=== PATIENT | male | born 1945 | race Caucasian/White ===

== ENCOUNTER 2020-02-12 16:36 | Emergency (ER) | payer BC, MEDICARE ==
[~2020-02-12] VITALS: Ht 167.6 cm; Wt 66.3 kg
[2020-02-12 17:22] LABS: BASOPHILS # (AUTO) 0.09 x10^3/uL (0-0.1); BASOPHILS % (AUTO) 1 % (0-1); EOSINOPHILS # (AUTO) 0.35 x10^3/uL (0-0.4); EOSINOPHILS % (AUTO) 4 % (1-7); LYMPHOCYTES # (AUTO) 2.15 x10^3/uL (1-3.4); LYMPHOCYTES % (AUTO) 24 % (22-44); MD NO; MEAN CORPUSCULAR HEMOGLOBIN 31.5 pg (27.5-34.5); MEAN CORPUSCULAR VOLUME 98.4 fL (81-97); MEAN PLATELET VOLUME 8.8 fL (7.4-10.4); MONOCYTES # (AUTO) 0.76 x10^3/uL (0.2-0.8); MONOCYTES % (AUTO) 8 % (2-9); NEUTROPHILS # (AUTO) 5.75 x10^3/uL (1.8-6.8); NEUTROPHILS % (AUTO) 63 % (42-75); PLATELET COUNT 194 x10^3/uL (130-400); RED BLOOD COUNT 4.62 x10^6/uL (4.38-5.82)
[2020-02-12 17:28] LABS: ANION GAP 5 mmol/L (5-15); CALCIUM 8.5 mg/dL (8.5-10.1); CHLORIDE 108 mmol/L (98-107); CREATININE 1.54 mg/dL (0.7-1.3)
--- NOTE | 2020-02-12 17:33 | NUR ---
[employer]: PT TO ROOM FROM LOBBY
[2020-02-12] MEDS ORDERED: PRIM250T34 PO (17:48)
[2020-02-12] MEDS ORDERED: LISI2.5T PO (17:48)
[2020-02-12] MEDS ORDERED: CARB1TAB22 PO (17:48)
[2020-02-12] MEDS ORDERED: ATOR20TA37 PO (17:48)
[2020-02-12] MEDS ORDERED: GLIP1TAB5 PO (17:48)
[2020-02-12] MEDS ORDERED: PROP80TA PO (17:48)
[2020-02-12] MEDS ORDERED: CARB1TAB2 PO (17:49)
--- NOTE | 2020-02-12 17:54 | NUR ---
PT REPORTS HE RECEIVED A CALL FROM PCP OFFICE TO COME IN DUE TO ABNORMAL KIDNEY FUNCTION RESULTS ON BLOOD TESTS DONE YESTERDAY. FALL PRECAUTIONS IN PLACE, CALL LIGHT WITHIN REACH.
[2020-02-12] MEDS ORDERED: SODIUM CHLORIDE 0.9% 1,000ML IVBOLUS ONE (18:00)
[2020-02-12] MEDS ORDERED: SODIUM CHLORIDE FLUSH 10ML SYR IVF ONE (18:00)
[2020-02-12 19:24] VITALS: BP 102/57
== END 2020-02-12 19:43 ==
LOC: ED 19:37
DX: E87.5 Hyperkalemia (principal); R94.4 Abnormal results of kidney function studies; R00.0 Tachycardia, unspecified
CPT/HCPCS: 36415; 80048; 85025; 93005; 96360; 99284; J7030